=== PATIENT | female | born 1980 | race Caucasian/White ===

== ENCOUNTER 2022-04-21 16:14 | Emergency (ER) | payer OTHER ==
[2022-04-21 16:37] VITALS: BP 122/76; PULSE 81; RESP 18; TEMP 98; BMI 33.8
[2022-04-21 17:30] LABS: BASO % 0.8 % (0-2.0); EOS % 1.3 % (0-4.5); HEMATOCRIT 39.4 % (32.4-45.2); HEMOGLOBIN 13.3 GM/dL (10.7-15.3); LYMPH % 27.4 % (8-40); MCH 28.7 pg (25.7-33.7); MCHC 33.6 g/dl (32.0-36.0); MEAN CELL VOLUME 85.5 fl (80-96); MEAN PLT VOLUME 8.3 fl (7.5-11.1); MONO % 6.8 % (3.8-10.2); NEUT % 63.7 % (42.8-82.8); PLATELET COUNT 355 10^3/uL (134-434); RBC 4.61 M/mm3 (3.60-5.2); RDW 13.1 % (11.6-15.6); WHITE BLOOD COUNT 12.3 K/mm3 (4.0-10.0)
[2022-04-21 17:37] LABS: INR 0.98 (0.83-1.09); PROTHROMBIN TIME (PATIENT) 11.4 SEC (9.7-13.0)
[2022-04-21 17:40] LABS: ACTIVATED PTT 35.2 SECONDS (25.2-36.5)
[2022-04-21 17:56] LABS: CALCIUM 9.1 mg/dL (8.5-10.1)
[2022-04-21 17:57] LABS: BLOOD UREA NITROGEN 16.8 mg/dL (7-18)
[2022-04-21 18:00] LABS: CREATININE 0.8 mg/dL (0.55-1.3)
[2022-04-21 18:02] LABS: BILIRUBIN,TOTAL 0.4 mg/dL (0.2-1); TOT PROT 7.6 g/dl (6.4-8.2)
[2022-04-21 18:31] LABS: HCG,QUALITATIVE URINE Negative
[2022-04-21 18:32] LABS: EPI CELLS 10 /uL (0-25.1); HYALINE CASTS 0 /uL (0-3.1); PH,URINE 6.5 (5.0-8.0); URINE APPEARANCE CLEAR; URINE BACTERIA 28 /uL (0-1359); URINE BILIRUBIN NEGATIVE (NEGATIVE); URINE COLOR YELLOW; URINE GLUCOSE (UA) NEGATIVE (NEGATIVE); URINE KETONE TRACE (NEGATIVE); URINE LEUK ESTERASE NEGATIVE (NEGATIVE); URINE NITRITE NEGATIVE (NEGATIVE); URINE PROTEIN NEGATIVE (NEGATIVE); URINE RBC 30 /uL (0-23.9); URINE UROBILINOGEN 0.2 mg/dL (0.2-1.0); URINE WBC 4 /uL (0-25.8)
[2022-04-21] MEDS ORDERED: ACETAMINOPHEN 1000 MG/100 ML BAG IVPB ONE (18:33)
[2022-04-21] MEDS ORDERED: KETOROLAC TROMETHAMINE 15 MG/ML VIAL IM ONE (18:33)
[2022-04-21] MEDS ORDERED: ACETAMINOPHEN INJECTION 100 ML IVPB ONE (18:40)
[2022-04-21] MEDS ORDERED: KETOROLAC TROMETHAMINE 15 MG/ML VIAL ONE (18:40)
== END 2022-04-21 20:36 | disposition home or self-care (01) ==
LOC: JER 16:14
PROC: 3E033GC Introduction of Other Therapeutic Substance into Peripheral Vein, Percutaneous Approach (ICD-10-PCS; principal; 2022-04-21)
PROC: 3E023GC Introduction of Other Therapeutic Substance into Muscle, Percutaneous Approach (ICD-10-PCS; principal; 2022-04-21)
DX: N93.9 Abnormal uterine and vaginal bleeding, unspecified (principal)
CPT/HCPCS: 36415; 76830-TC; 80053; 81003; 84703; 85025; 85610; 85730; 87086; 96372; 96374; 99284-25

== ENCOUNTER 2022-07-01 04:27 | Day surgery (SDC) | payer OTHER ==
[2022-06-23 11:25] VITALS: BMI 34.0
[2022-07-01] MEDS ORDERED: BUPIVACAINE HCL/PF 0.25% (2.5MG/ML) 10 ML VIAL ONE (13:15)
[2022-07-01] MEDS ORDERED: MIDAZOLAM HCL 2 MG/2 ML SINGLE DOSE VIAL ONE ×2 (13:54→16:54)
[2022-07-01] MEDS ORDERED: BUPIVACAINE HCL/PF 0.25% (2.5MG/ML) 10 ML VIAL IJ ONE ×2 (14:21)
[2022-07-01] MEDS ORDERED: oxyCODONE HCL 5 MG TABLET PO PRN (14:23)
[2022-07-01] MEDS ORDERED: ONDANSETRON 4 MG/2 ML VIAL IVPUSH PRN (14:23)
[2022-07-01] MEDS ORDERED: PROPOFOL 20 ML ONE (14:25)
[2022-07-01] MEDS ORDERED: ROCURONIUM BROMIDE 50 MG/5 ML SYRINGE ONE (14:25)
[2022-07-01] MEDS ORDERED: LACTATED RINGERS SOLUTION 1,000 ML IV SCH (14:30)
[2022-07-01] MEDS ORDERED: NEOSTIGMINE METHYLSULFATE 0.5 MG/1 ML - 10 ML MDV ONE (14:59)
[2022-07-01] MEDS ORDERED: ACETAMINOPHEN 1000 MG/100 ML BAG IVPB ONE ×2 (16:25→16:28)
[2022-07-01] MEDS ORDERED: HYDROmorphone HCl 2 MG/ML VIAL IVPUSH PRN (16:25)
[2022-07-01] MEDS ORDERED: ACETAMINOPHEN INJECTION 100 ML IVPB ONE (16:27)
[2022-07-01] MEDS ORDERED: HYDROmorphone HCl 2 MG/ML VIAL ONE (16:27)
[2022-07-01] MEDS ORDERED: HYDROmorphone HCl 2 MG/ML VIAL IVPUSH ONE (16:30)
[2022-07-01] MEDS ORDERED: oxyCODONE HCL 5 MG TABLET ONE (18:09)
[2022-07-01] MEDS ORDERED: ONDANSETRON 4 MG/2 ML VIAL ONE (18:14)
[2022-07-01] MEDS ORDERED: ONDANSETRON 4 MG/2 ML VIAL IVPUSH ONE (18:22)
[2022-07-01 18:28] VITALS: RESP 16
[2022-07-01] MEDS ORDERED: oxyCODONE HCL 5 MG TABLET PO ONE (18:40)
[2022-07-01 19:50] VITALS: BP 136/88; PULSE 89; TEMP 97.4
== END 2022-07-01 19:42 | disposition home or self-care (01) ==
LOC: JASU-SURG 04:27
PROVIDERS: ATTEND Obstetrics & Gynecology
PROC: 0UB74ZZ Excision of Bilateral Fallopian Tubes, Percutaneous Endoscopic Approach (ICD-10-PCS; principal; 2022-07-01 14:00)
PROC: 0U5B8ZZ Destruction of Endometrium, Via Natural or Artificial Opening Endoscopic (ICD-10-PCS; 2022-07-01 14:00)
DX: Z30.2 Encounter for sterilization (principal); N93.8 Other specified abnormal uterine and vaginal bleeding; Z30.432 Encounter for removal of intrauterine contraceptive device
CPT/HCPCS: 81025; 88300-TC; 88302-TC; 88305-TC; 94760